=== PATIENT | female | born 2000 | race Two or more races ===

== ENCOUNTER 2023-12-31 15:38 | Outpatient (CLI) | payer OTHER | END 2023-12-31 15:39 | disposition home or self-care (01) | LOC: PRENATAL 15:38 | PROVIDERS: ATTEND Obstetrics & Gynecology Maternal & Fetal Medicine | DX: O26.843 Uterine size-date discrepancy, third trimester (principal); O36.8130 Decreased fetal movements, third trimester, not applicable or unspecified; O99.013 Anemia complicating pregnancy, third trimester; O40.3XX0 Polyhydramnios, third trimester, not applicable or unspecified; Z3A.34 34 weeks gestation of pregnancy ==